=== PATIENT | female | born 1950 | race Two or more races ===

== ENCOUNTER 2017-05-05 14:03 | Day surgery (SDC) | payer OTHER ==
[~2017-05-05] VITALS: Ht 160 cm; Wt 71.0 kg
[2017-05-05 14:49] VITALS: Ht 160 cm; Wt 71.0 kg
[2017-05-05] MEDS ORDERED: FAMO20TA18 PO (15:02)
[2017-05-05] MEDS ORDERED: HUMALOG SC (15:02)
[2017-05-05] MEDS ORDERED: VIT D3 PO (15:02)
[2017-05-05] MEDS ORDERED: FERR325T5 PO (15:02)
[2017-05-05] MEDS ORDERED: AMLO-145 PO (15:02)
--- NOTE | 2017-05-05 17:15 | OPPN ---
Date/Time of Note Date/Time of Note DATE: 05/05/17 TIME: 17:08 Proc Note GI Procedure Date 05/05/17 Indication: other (Hematemesis) Pre-procedure Diagnosis Hematemesis Post-procedure Diagnosis Impression: Grade III/IV esophageal varices Large fundal gastric varices Mild gastritis antrum. Rule out H pylori. Otherwise EGD Plan: Liver w/u Consider TIPS procedure to decompress . Procedure Performed: Endoscopy Surgeon MAGNUS BRAR MD See signature line Box Office Manager none Anesthesia Type: moderate sedation (Versed 2 mg/fentanyl 50 mcg) Tourniquet Time none EBL none Transfusion required none Biopsy 1: Gastric antrum Grafts/Implants none Tubes/Drains none Complication(s) none Disposition: home Procedure Description Preoperative Diagnosis: After informed consent, with the patient/relatives understanding the procedure, its indications, potential risks and complications, including but not limited to : allergic reaction, bleeding, perforation or infection, and after all pertinent questions were answered to the patients satisfaction, the patient/ relatives signed witnessed informed consent. Following this, premedication was administered slowly IV push under careful cardiovascular and respiratory monitoring with pulse oximetry, automatic blood pressure, and quality assurance monitor chassis. Once the sedative effect was achieved the patient was place in the left lateral decubitus, the panendoscope was introduced and advanced under visual control. Careful examination of the upper gastrointestinal tract, both on insertion as well as withdrawal of the instrument disclosing the following findings: ESOPHAGUS: the mucosa of the entire esophagus was carefully examined and showed the following findings: There are large grade III/IV esophageal varices with no stigmata. No therapeutic intervention. Otherwise the mucosa appears within normal limits. There is no evidence of esophagitis, neoplasm, or stricture. No Hiatal Hernia identified. STOMACH: Upon entrance to the stomach air was insufflated, the gastric kenyon distended normally. The mucosa of the fundus, body and antrum of the stomach was carefully examined both head-on and on retroflexion, and showed the following findings: There are large fundal gastric varices. The antrum of the stomach shows erythema and edema. Biopsies were obtained to rule out H. pylori infection. Otherwise the mucosa appears within normal limits with no abnormalities. There is no evidence of ulcers or neoplasm. PYLORUS: The pylorus was carefully examined and showed the following findings: the pylorus appears patent and within normal limits, with no evidence of gastric outlet obstruction. DUODENUM: The duodenal mucosa was carefully examined in the duodenal bulb as well as the second portion of the duodenum and showed the following findings: the mucosa appears unremarkable with no evidence of duodenitis, ulcer or neoplasm. Copies To: CC: MAGNUS BRAR MD, MORDO MD May 05, 2017 17:15
--- NOTE | 2017-05-05 17:17 | OPPN ---
Date/Time of Note Date/Time of Note DATE: 05/05/17 TIME: 17:16 Proc Note GI Procedure Date 05/05/17 Indication: other (Hematochezia) Pre-procedure Diagnosis Hematochezia Post-procedure Diagnosis Impression: Moderate-sized internal hemorrhoids Otherwise normal colonoscopy to cecum. Plan: Conservative management hemorrhoidal disease Follow up as scheduled] High fiber diet Annual hemoccult stool testing [Screening colonoscopy in 10 years] Procedure Performed: Colonoscopy Surgeon MAGNUS BRAR MD See signature line Firer Kiln none Anesthesia Type: moderate sedation (Versed 2 mg/fentanyl 50 mcg) Tourniquet Time none EBL none Transfusion required none Biopsy 1: None Grafts/Implants none Tubes/Drains none Complication(s) none Disposition: home Procedure Description After informed consent, with the patient/relatives understanding the procedure, its indications and potential risks and complications, including but not limited to: Allergic reaction, bleeding, perforation, infection, and after all pertinent questions were answered to the patient's satisfaction, the patient/ relatives signed the witnessed informed consent. Following this, premedication was administered slowly IV push under careful cardiovascular and respiratory monitoring with pulse O[employer], automatic blood pressure, and monitor tech. Once the sedative effect was achieved, the patient was placed in the left lateral decubitus position, digital rectal examination was performed. The colonoscope was then introduced and advanced under visual control throughout all segments of the colon including: []the rectum, sigmoid, descending colon, splenic flexure, transverse colon, hepatic flexure, ascending colon and finally reaching the cecum which was clearly identified by transillumination, finger indentation and the ileocecal valve. Careful examination of the mucosa of the lower gastrointestinal tract both on insertion as well as withdrawal of the instrument disclosed the following findings: PREPARATION QUALITY: [Adequate], RECTAL EXAM: The anorectal area was visualized examined and digital rectal examination performed with the following findings: No evidence of perirectal disease, no masses. COLONIC MUCOSA: The mucosa of all segments of the colon was carefully examined and showed the following findings: the examined mucosa appears within normal limits. There is no evidence of inflammatory changes, diverticular formation, polyps or other neoplasms, vascular malformation, or any other abnormality. Moderate-sized internal hemorrhoids are noted. The instrument was then withdrawn, the patient tolerated the procedure well and was transferred out of the Endoscopy Suite awake and in good condition to continue recovery under observation. Copies To: CC: MAGNUS BRAR MD, MORDO MD May 05, 2017 17:17
[2017-05-05] MEDS ORDERED: FENTAnyl 50 MCG/ML VIAL ONE (17:33)
[2017-05-05] MEDS ORDERED: MIDAZOLAM 1 MG/ML 2 ML INJ ONE (17:33)
[2017-05-05 17:40] VITALS: BP 121/60; PULSE 84; RESP 20
== END 2017-05-05 19:08 | disposition home or self-care (01) ==
LOC: GIL 14:03
PROVIDERS: ATTEND Internal Medicine Gastroenterology
DX: K92.1 Melena (principal); K29.30 Chronic superficial gastritis without bleeding; K64.4 Residual hemorrhoidal skin tags; I85.00 Esophageal varices without bleeding; I86.4 Gastric varices; E11.9 Type 2 diabetes mellitus without complications; I10 Essential (primary) hypertension
CPT/HCPCS: 43239; 45378; 82962; 88305; 88312; J2250; J3010; Z7610